=== PATIENT | female | born 1975 | race Caucasian/White ===

== ENCOUNTER 2018-06-15 05:40 | Day surgery (SDC) | payer OTHER ==
[~2018-06-15 05:40] MED LIST: COLACE100 MG PO; NAPROXEN SODIU550 MG PO; TYLENOL-CODEINE1 TAB PO
[2018-06-15] MEDS ORDERED: DOXYCYCLINE HY100 MG PO (08:38)
[2018-06-15] MEDS ORDERED: CODE1TAB37 PO (08:38)
== END 2018-06-15 13:35 | disposition home or self-care (01) ==
LOC: CIR.AMB 05:40
DX: D25.0 Submucous leiomyoma of uterus (principal); N92.0 Excessive and frequent menstruation with regular cycle; N84.0 Polyp of corpus uteri

== ENCOUNTER 2022-04-20 10:00 | Inpatient (IN) | payer OTHER ==
[~2022-04-20] VITALS: Ht 167.6 cm; Wt 79.4 kg
[~2022-04-20 10:00] MED LIST changes: +CODE1TAB37 PO; +DOXYCYCLINE HY100 MG PO
[2022-04-23] MEDS ORDERED: Tylenol #3 PO (09:04)
[2022-04-23] MEDS ORDERED: NAPR500T14 PO (09:04)
== END 2022-04-23 10:52 | disposition home or self-care (01) | DRG 743 ==
LOC: O/R 04-22 05:30 → OB/GYN 04-22 10:00
PROVIDERS: ADMIT Obstetrics & Gynecology; ATTEND Obstetrics & Gynecology
PROC: 0UT74ZZ Resection of Bilateral Fallopian Tubes, Percutaneous Endoscopic Approach (ICD-10-PCS; 2022-04-22)
PROC: 0UT24ZZ Resection of Bilateral Ovaries, Percutaneous Endoscopic Approach (ICD-10-PCS; 2022-04-22)
PROC: 0TJB8ZZ Inspection of Bladder, Via Natural or Artificial Opening Endoscopic (ICD-10-PCS; 2022-04-22)
PROC: 0UT94ZZ Resection of Uterus, Percutaneous Endoscopic Approach (ICD-10-PCS; principal; 2022-04-22 10:20)
DX: D25.1 Intramural leiomyoma of uterus (principal); N72 Inflammatory disease of cervix uteri; N80.0 Endometriosis of uterus; Z20.822 Contact with and (suspected) exposure to COVID-19

== ENCOUNTER → 2022-05-09 | Emergency (ER) | payer OTHER | END | disposition home or self-care (01) | LOC: ER 21:01 | DX: N93.9 Abnormal uterine and vaginal bleeding, unspecified (principal) ==